=== PATIENT | female | born 1980 | race Caucasian/White ===

== ENCOUNTER → 2019-11-21 08:57 | Outpatient (BNVA) | payer MEDICAID, SELFPAY | PROVIDERS: Family Provider Family Medicine; PCP Family Medicine; Visit Provider Nurse Practitioner | DX: G89.29 Other chronic pain (principal); M51.17 Intervertebral disc disorders with radiculopathy, lumbosacral region; M47.816 Spondylosis without myelopathy or radiculopathy, lumbar region; M43.16 Spondylolisthesis, lumbar region; M51.34 Other intervertebral disc degeneration, thoracic region; M25.561 Pain in right knee; M25.562 Pain in left knee; M25.30 Other instability, unspecified joint; Z79.891 Long term (current) use of opiate analgesic | CPT/HCPCS: 99213 ==

== ENCOUNTER 2019-12-04 08:39 | Outpatient (CLI) | payer MEDICAID, SELFPAY ==
--- NOTE | 2019-12-04 09:10 | FL_ITS ---
WS: [id number] UPPER GI TECHNICAL: Double contrast upper GI FLUOROSCOPY TIME: 2.6 minutes CLINICAL INFORMATION: GERD COMPARISON: None. FINDINGS: Swallowing: Normal. Esophagus: Mild dysmotility Gastroesophageal reflux: Active reflux observed to the upper esophagus Stomach: Moderate esophageal hiatal hernia with partial intrathoracic stomach. Double contrast stomac h is otherwise normal. No obstruction. Duodenum: Normal. Other findings: None. FL/FL upper GI series [id number] IMPRESSION: 1. Mild esophageal dysmotility with delayed emptying and reflux is visualized. 2. Active reflux observed in the upright position to the mid and upper esophag us. 3. Moderate esophageal hiatal hernia with partial intrathoracic stomach. 4. Normal double contrast stomach and duodenum
== END 2019-12-04 08:40 | disposition home or self-care (01) ==
PROVIDERS: Family Provider Family Medicine; PCP Family Medicine; Visit Provider Surgery
DX: K21.9 Gastro-esophageal reflux disease without esophagitis (principal); K44.9 Diaphragmatic hernia without obstruction or gangrene
CPT/HCPCS: 74240

== ENCOUNTER → 2020-01-15 08:45 | Outpatient (BNVA) | payer MEDICAID, SELFPAY | PROVIDERS: Family Provider Family Medicine; PCP Family Medicine; Visit Provider Anesthesiology | DX: G89.29 Other chronic pain (principal); M51.34 Other intervertebral disc degeneration, thoracic region; M43.16 Spondylolisthesis, lumbar region; M47.816 Spondylosis without myelopathy or radiculopathy, lumbar region; M51.17 Intervertebral disc disorders with radiculopathy, lumbosacral region; M79.651 Pain in right thigh; M79.652 Pain in left thigh; M25.561 Pain in right knee; M25.562 Pain in left knee; Z79.891 Long term (current) use of opiate analgesic | CPT/HCPCS: 99214 ==

== ENCOUNTER 2020-04-22 19:14 | Emergency (ER) | payer MEDICAID, SELFPAY ==
[2020-04-22 19:21] VITALS: BP 125/78; RESP 16; TEMP 36.9; O2SAT 97; BMI 41.9
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
[2020-04-22 20:54] VITALS: BP 131/96; PULSE 106; RESP 18; O2SAT 99
[2020-04-22 21:27] VITALS: BP 130/92; PULSE 116; RESP 16; O2SAT 99
[2020-04-22 22:50] VITALS: BP 122/86; PULSE 102; RESP 16; O2SAT 97
== END 2020-04-22 23:02 | disposition home or self-care (01) ==
PROVIDERS: Emergency Provider Emergency Medicine; PCP Family Medicine
DX: S01.01XA Laceration without foreign body of scalp, initial encounter (principal); S00.83XA Contusion of other part of head, initial encounter; K08.89 Other specified disorders of teeth and supporting structures; Y04.8XXA Assault by other bodily force, initial encounter; Z86.19 Personal history of other infectious and parasitic diseases; Z87.891 Personal history of nicotine dependence
CPT/HCPCS: 12002; 12345; 70450; 70486; 72125; 99282; 99283; J2001

== ENCOUNTER → 2020-04-29 14:13 | Outpatient (BNVA) | payer MEDICAID, SELFPAY | PROVIDERS: PCP Family Medicine; Visit Provider Anesthesiology | DX: G89.29 Other chronic pain (principal); M51.34 Other intervertebral disc degeneration, thoracic region; M43.16 Spondylolisthesis, lumbar region; M47.816 Spondylosis without myelopathy or radiculopathy, lumbar region; M51.17 Intervertebral disc disorders with radiculopathy, lumbosacral region; Z79.891 Long term (current) use of opiate analgesic | CPT/HCPCS: 99214 ==

== ENCOUNTER → 2020-07-08 12:39 | Outpatient (BNVA) | payer MEDICAID, SELFPAY | PROVIDERS: PCP Family Medicine; Visit Provider Anesthesiology | DX: G89.29 Other chronic pain (principal); M51.17 Intervertebral disc disorders with radiculopathy, lumbosacral region; M51.34 Other intervertebral disc degeneration, thoracic region; M43.16 Spondylolisthesis, lumbar region; M47.816 Spondylosis without myelopathy or radiculopathy, lumbar region; Z79.891 Long term (current) use of opiate analgesic | CPT/HCPCS: 99214 ==

== ENCOUNTER → 2020-09-04 08:05 | Outpatient (BNVA) | payer MEDICAID, SELFPAY | PROVIDERS: PCP Family Medicine; Visit Provider Counselor Professional | DX: G89.29 Other chronic pain (principal); M51.17 Intervertebral disc disorders with radiculopathy, lumbosacral region; M51.34 Other intervertebral disc degeneration, thoracic region; M43.16 Spondylolisthesis, lumbar region; M47.816 Spondylosis without myelopathy or radiculopathy, lumbar region; Z79.891 Long term (current) use of opiate analgesic | CPT/HCPCS: 99214 ==

== ENCOUNTER 2020-09-04 14:05 | Outpatient (CLI) | payer MEDICAID, SELFPAY ==
[2020-09-04 14:56] LABS: Alanine Aminotransferase 22 U/L (0-33); Albumin Level 4.2 g/dL (3.5-5.2); Alkaline Phosphatase 77 IU/L (35-105); Anion Gap 12.6 (5-19); Aspartate Amino Transferase 21 U/L (0-32); Blood Urea Nitrogen 11 mg/dL (6-20); Calcium 9.4 mg/dL (8.5-10.5); Carbon Dioxide 26 mmol/L (22-29); Chloride 104 mmol/L (98-107); Glomerular Filtration Rate 68.7 mL/min (90-130); Glucose 97 mg/dL (65-115); Osmolality Calculated 285 mOsm/kg (285-295); Potassium 4.6 mmol/L (3.5-5.1); Sodium 138 mmol/L (136-145); Total Bilirubin 0.2 mg/dL (0.15-1.2); Total Protein 7.2 g/dL (6.6-8.7)
== END 2020-09-04 14:06 | disposition home or self-care (01) ==
LOC: LAB 14:08
PROVIDERS: PCP Family Medicine; Visit Provider Anesthesiology
DX: Z51.81 Encounter for therapeutic drug level monitoring (principal); Z79.1 Long term (current) use of non-steroidal anti-inflammatories (NSAID)
CPT/HCPCS: 36415; 80053

== ENCOUNTER → 2020-09-11 07:21 | Outpatient (BNVA) | payer MEDICAID, SELFPAY | PROVIDERS: PCP Family Medicine; Visit Provider Counselor Professional | DX: F32.9 Major depressive disorder, single episode, unspecified (principal) | CPT/HCPCS: 90834 ==

== ENCOUNTER → 2020-09-18 07:58 | Outpatient (BNVA) | payer MEDICAID, SELFPAY | PROVIDERS: PCP Family Medicine; Visit Provider Counselor Professional | DX: F32.9 Major depressive disorder, single episode, unspecified (principal); F43.20 Adjustment disorder, unspecified | CPT/HCPCS: 90834 ==

== ENCOUNTER → 2020-09-23 15:10 | Outpatient (BNVA) | payer OTHER, SELFPAY | PROVIDERS: PCP Family Medicine; Visit Provider Psychiatry & Neurology Psychiatry | DX: F32.9 Major depressive disorder, single episode, unspecified (principal) | CPT/HCPCS: 80061; 83036 ==

== ENCOUNTER → 2020-09-25 07:42 | Outpatient (BNVA) | payer MEDICAID, SELFPAY | PROVIDERS: PCP Family Medicine; Visit Provider Counselor Professional | DX: F32.9 Major depressive disorder, single episode, unspecified (principal) | CPT/HCPCS: 90834 ==

== ENCOUNTER → 2020-10-02 07:52 | Outpatient (BNVA) | payer MEDICAID, SELFPAY ==
[2020-09-25 13:38] VITALS: BP 118/73; BMI 43.7
== END ==
PROVIDERS: PCP Family Medicine; Visit Provider Counselor Professional
DX: F32.9 Major depressive disorder, single episode, unspecified (principal)
CPT/HCPCS: 90832

== ENCOUNTER → 2020-10-16 07:39 | Outpatient (BNVA) | payer MEDICAID, SELFPAY ==
[2020-09-25 13:38] VITALS: BP 118/73; BMI 43.7
== END ==
PROVIDERS: PCP Family Medicine; Visit Provider Counselor Professional
DX: F32.9 Major depressive disorder, single episode, unspecified (principal)
CPT/HCPCS: 90834

== ENCOUNTER → 2020-10-30 08:00 | Outpatient (BNVA) | payer MEDICAID, SELFPAY ==
[2020-09-25 13:38] VITALS: BP 118/73; BMI 43.7
== END ==
PROVIDERS: PCP Family Medicine; Visit Provider Counselor Professional
DX: F32.9 Major depressive disorder, single episode, unspecified (principal)
CPT/HCPCS: 90834

== ENCOUNTER → 2020-11-27 07:58 | Outpatient (BNVA) | payer BC, SELFPAY ==
[2020-09-25 13:38] VITALS: BP 118/73; BMI 43.7
== END ==
PROVIDERS: PCP Family Medicine; Visit Provider Counselor Professional
DX: F32.9 Major depressive disorder, single episode, unspecified (principal); F43.20 Adjustment disorder, unspecified; G89.29 Other chronic pain; M51.17 Intervertebral disc disorders with radiculopathy, lumbosacral region; M47.816 Spondylosis without myelopathy or radiculopathy, lumbar region; M43.16 Spondylolisthesis, lumbar region; G25.81 Restless legs syndrome; Z79.891 Long term (current) use of opiate analgesic
CPT/HCPCS: 90834; 99214

== ENCOUNTER → 2020-12-11 08:02 | Outpatient (BNVA) | payer BC, SELFPAY ==
[2020-09-25 13:38] VITALS: BP 118/73; BMI 43.7
== END ==
PROVIDERS: PCP Family Medicine; Visit Provider Counselor Professional
DX: F32.9 Major depressive disorder, single episode, unspecified (principal); F43.20 Adjustment disorder, unspecified
CPT/HCPCS: 90834

== ENCOUNTER → 2020-12-18 07:44 | Outpatient (BNVA) | payer BC, SELFPAY ==
[2020-09-25 13:38] VITALS: BP 118/73; BMI 43.7
== END ==
PROVIDERS: PCP Family Medicine; Visit Provider Counselor Professional
DX: F32.9 Major depressive disorder, single episode, unspecified (principal); F43.20 Adjustment disorder, unspecified
CPT/HCPCS: 90834

== ENCOUNTER → 2021-01-01 07:40 | Outpatient (BNVA) | payer BC, SELFPAY ==
[2020-09-25 13:38] VITALS: BP 118/73; BMI 43.7
== END ==
PROVIDERS: PCP Family Medicine; Visit Provider Counselor Professional
DX: F32.9 Major depressive disorder, single episode, unspecified (principal); F43.20 Adjustment disorder, unspecified
CPT/HCPCS: 90834

== ENCOUNTER → 2021-01-15 07:43 | Outpatient (BNVA) | payer BC, SELFPAY ==
[2020-09-25 13:38] VITALS: BP 118/73; BMI 43.7
== END ==
PROVIDERS: PCP Family Medicine; Visit Provider Counselor Professional
DX: F32.9 Major depressive disorder, single episode, unspecified (principal); F43.20 Adjustment disorder, unspecified
CPT/HCPCS: 90834

== ENCOUNTER → 2021-01-22 07:36 | Outpatient (BNVA) | payer BC, SELFPAY ==
[2020-09-25 13:38] VITALS: BP 118/73; BMI 43.7
== END ==
PROVIDERS: PCP Family Medicine; Visit Provider Counselor Professional
DX: F32.9 Major depressive disorder, single episode, unspecified (principal); F43.20 Adjustment disorder, unspecified
CPT/HCPCS: 90834

== ENCOUNTER → 2021-02-03 10:05 | Outpatient (BNVA) | payer BC, MEDICAID, SELFPAY ==
[2020-09-25 13:38] VITALS: BP 118/73; BMI 43.7
== END ==
PROVIDERS: PCP Family Medicine; Visit Provider Nurse Practitioner
DX: G89.29 Other chronic pain (principal); M43.16 Spondylolisthesis, lumbar region; M51.17 Intervertebral disc disorders with radiculopathy, lumbosacral region; M51.34 Other intervertebral disc degeneration, thoracic region; M25.561 Pain in right knee; M25.562 Pain in left knee; G25.81 Restless legs syndrome; Z79.891 Long term (current) use of opiate analgesic
CPT/HCPCS: 99213

== ENCOUNTER → 2021-02-05 07:34 | Outpatient (BNVA) | payer BC, SELFPAY ==
[2020-09-25 13:38] VITALS: BP 118/73; BMI 43.7
== END ==
PROVIDERS: PCP Family Medicine; Visit Provider Counselor Professional
DX: F32.9 Major depressive disorder, single episode, unspecified (principal); F43.20 Adjustment disorder, unspecified
CPT/HCPCS: 90834

== ENCOUNTER → 2021-02-12 08:33 | Outpatient (BNVA) | payer BC, SELFPAY ==
[2020-09-25 13:38] VITALS: BP 118/73; BMI 43.7
== END ==
PROVIDERS: PCP Family Medicine; Visit Provider Counselor Professional
DX: F32.9 Major depressive disorder, single episode, unspecified (principal); F43.20 Adjustment disorder, unspecified
CPT/HCPCS: 90832

== ENCOUNTER → 2021-02-26 08:04 | Outpatient (BNVA) | payer BC, SELFPAY ==
[2020-09-25 13:38] VITALS: BP 118/73; BMI 43.7
== END ==
PROVIDERS: PCP Family Medicine; Visit Provider Counselor Professional
DX: F32.9 Major depressive disorder, single episode, unspecified (principal); F43.20 Adjustment disorder, unspecified
CPT/HCPCS: 90834

== ENCOUNTER → 2021-03-12 08:09 | Outpatient (BNVA) | payer OTHER, SELFPAY ==
[2020-09-25 13:38] VITALS: BP 118/73; BMI 43.7
== END ==
PROVIDERS: PCP Family Medicine; Visit Provider Counselor Professional
DX: F32.9 Major depressive disorder, single episode, unspecified (principal); F43.20 Adjustment disorder, unspecified
CPT/HCPCS: 90832; 90834

== ENCOUNTER → 2021-04-02 14:33 | Outpatient (BNVA) | payer BC, MEDICAID, SELFPAY ==
[2020-09-25 13:38] VITALS: BP 118/73; BMI 43.7
== END ==
PROVIDERS: PCP Family Medicine; Visit Provider Nurse Practitioner
DX: G89.29 Other chronic pain (principal); M51.17 Intervertebral disc disorders with radiculopathy, lumbosacral region; M47.816 Spondylosis without myelopathy or radiculopathy, lumbar region; M51.34 Other intervertebral disc degeneration, thoracic region; M43.16 Spondylolisthesis, lumbar region; M25.561 Pain in right knee; M25.562 Pain in left knee; G25.81 Restless legs syndrome; E66.01 Morbid (severe) obesity due to excess calories; Z79.891 Long term (current) use of opiate analgesic
CPT/HCPCS: 99213

== ENCOUNTER → 2021-05-26 11:18 | Outpatient (BNVA) | payer BC, SELFPAY ==
[2021-04-02 15:03] VITALS: BP 118/73; BMI 43.7
== END ==
PROVIDERS: PCP Family Medicine; Visit Provider Anesthesiology
DX: G89.29 Other chronic pain (principal); M51.17 Intervertebral disc disorders with radiculopathy, lumbosacral region; M51.34 Other intervertebral disc degeneration, thoracic region; M43.16 Spondylolisthesis, lumbar region; M47.816 Spondylosis without myelopathy or radiculopathy, lumbar region; M79.606 Pain in leg, unspecified; G25.81 Restless legs syndrome; Z79.891 Long term (current) use of opiate analgesic
CPT/HCPCS: 99213

== ENCOUNTER → 2021-05-27 08:05 | Outpatient (BNVA) | payer BC, SELFPAY ==
[2021-05-26 11:57] VITALS: BP 118/73; BMI 43.7
== END ==
PROVIDERS: PCP Family Medicine; Visit Provider Counselor Professional
DX: F32.9 Major depressive disorder, single episode, unspecified (principal); F43.20 Adjustment disorder, unspecified
CPT/HCPCS: 90834

== ENCOUNTER → 2021-06-11 08:12 | Outpatient (BNVA) | payer BC, SELFPAY ==
[2021-05-26 11:57] VITALS: BP 118/73; BMI 43.7
== END ==
PROVIDERS: PCP Family Medicine; Visit Provider Counselor Professional
DX: F32.9 Major depressive disorder, single episode, unspecified (principal); F43.20 Adjustment disorder, unspecified
CPT/HCPCS: 90832; 90834

== ENCOUNTER → 2021-07-09 11:00 | Outpatient (BNVA) | payer BC, OTHER, SELFPAY ==
[2021-05-26 11:57] VITALS: BP 118/73; BMI 43.7
== END ==
PROVIDERS: PCP Family Medicine; Visit Provider Counselor Professional
DX: F41.9 Anxiety disorder, unspecified (principal); F43.20 Adjustment disorder, unspecified
CPT/HCPCS: 90834

== ENCOUNTER → 2021-08-11 08:40 | Outpatient (BNVA) | payer BC, MEDICAID, SELFPAY ==
[2021-05-26 11:57] VITALS: BP 118/73; BMI 43.7
== END ==
PROVIDERS: PCP Family Medicine; Visit Provider Nurse Practitioner
DX: G89.29 Other chronic pain (principal); M43.16 Spondylolisthesis, lumbar region; M47.816 Spondylosis without myelopathy or radiculopathy, lumbar region; M51.34 Other intervertebral disc degeneration, thoracic region; S30.0XXA Contusion of lower back and pelvis, initial encounter; M51.17 Intervertebral disc disorders with radiculopathy, lumbosacral region; G25.81 Restless legs syndrome; M25.561 Pain in right knee; M25.562 Pain in left knee; E66.01 Morbid (severe) obesity due to excess calories; X58.XXXA Exposure to other specified factors, initial encounter; Z79.891 Long term (current) use of opiate analgesic; Z68.41 Body mass index [BMI] 40.0-44.9, adult
CPT/HCPCS: 99214

== ENCOUNTER 2021-08-11 10:53 | Outpatient (CLI) | payer BC, MEDICAID, SELFPAY ==
[2021-05-26 11:57] VITALS: BP 118/73; BMI 43.7
--- NOTE | 2021-08-11 11:03 | XR_ITS ---
WS: [id number] Exam: XR coccyx 2V [id number] Date/Time of Exam: 08/11/2021 11:05 AM Reason For Exam: M51.17 - Intervertebral disc disorders with radiculopathy... No acute fracture or dislocation. No obvious soft tissue abnormality noted. DJD of the SI joints. XR/XR coccyx 2V [id number] IMPRESSION: 1. No coccygeal fracture or dislocation.
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
[2021-08-11 12:07] LABS: Anion Gap 11.5 (5-19); Blood Urea Nitrogen 9 mg/dL (6-20); Calcium 9.2 mg/dL (8.5-10.5); Carbon Dioxide 26 mmol/L (22-29); Chloride 103 mmol/L (98-107); Glomerular Filtration Rate 109.1 mL/min (90-130); Glucose 84 mg/dL (65-115); Osmolality Calculated 280 mOsm/kg (285-295); Potassium 4.5 mmol/L (3.5-5.1); Sodium 136 mmol/L (136-145)
== END 2021-08-11 10:54 | disposition home or self-care (01) ==
PROVIDERS: PCP Family Medicine; Visit Provider Nurse Practitioner
DX: M51.17 Intervertebral disc disorders with radiculopathy, lumbosacral region (principal); S30.0XXA Contusion of lower back and pelvis, initial encounter; X58.XXXA Exposure to other specified factors, initial encounter; M47.816 Spondylosis without myelopathy or radiculopathy, lumbar region; M47.817 Spondylosis without myelopathy or radiculopathy, lumbosacral region
CPT/HCPCS: 72100; 72220; 80048

== ENCOUNTER → 2021-08-13 14:47 | Outpatient (BNVA) | payer BC, MEDICAID, SELFPAY ==
[2021-05-26 11:57] VITALS: BP 118/73; BMI 43.7
== END ==
PROVIDERS: PCP Family Medicine; Visit Provider Counselor Professional
DX: F41.0 Panic disorder [episodic paroxysmal anxiety] (principal); F43.20 Adjustment disorder, unspecified
CPT/HCPCS: 90834

== ENCOUNTER → 2021-08-19 07:22 | Outpatient (BNVA) | payer BC, SELFPAY ==
[2021-05-26 11:57] VITALS: BP 118/73; BMI 43.7
== END ==
PROVIDERS: PCP Family Medicine; Visit Provider Counselor Professional
DX: F41.9 Anxiety disorder, unspecified (principal); F43.20 Adjustment disorder, unspecified
CPT/HCPCS: 90834

== ENCOUNTER → 2021-10-06 13:10 | Outpatient (BNVA) | payer BC, MEDICAID, SELFPAY ==
[2021-05-26 11:57] VITALS: BP 118/73; BMI 43.7
== END ==
PROVIDERS: PCP Family Medicine; Visit Provider Anesthesiology
DX: G89.29 Other chronic pain (principal); M51.34 Other intervertebral disc degeneration, thoracic region; M43.16 Spondylolisthesis, lumbar region; M47.816 Spondylosis without myelopathy or radiculopathy, lumbar region; M51.17 Intervertebral disc disorders with radiculopathy, lumbosacral region; G25.81 Restless legs syndrome; Z79.899 Other long term (current) drug therapy; Z79.891 Long term (current) use of opiate analgesic
CPT/HCPCS: 99213

== ENCOUNTER → 2021-12-08 12:43 | Outpatient (BNVA) | payer BC, MEDICAID, SELFPAY ==
[2021-05-26 11:57] VITALS: BP 118/73; BMI 43.7
== END ==
PROVIDERS: PCP Family Medicine; Visit Provider Anesthesiology
DX: G89.29 Other chronic pain (principal); M54.41 Lumbago with sciatica, right side; M54.42 Lumbago with sciatica, left side; M43.16 Spondylolisthesis, lumbar region; G25.81 Restless legs syndrome; Z79.891 Long term (current) use of opiate analgesic; Z02.89 Encounter for other administrative examinations
CPT/HCPCS: 99213

== ENCOUNTER → 2021-12-15 10:51 | Outpatient (BNVA) | payer BC, MEDICAID, SELFPAY ==
[2021-05-26 11:57] VITALS: BP 118/73; BMI 43.7
== END ==
PROVIDERS: PCP Family Medicine; Visit Provider Family Medicine
DX: M47.816 Spondylosis without myelopathy or radiculopathy, lumbar region (principal); M43.16 Spondylolisthesis, lumbar region; M51.34 Other intervertebral disc degeneration, thoracic region; F32.9 Major depressive disorder, single episode, unspecified; E66.01 Morbid (severe) obesity due to excess calories; G25.81 Restless legs syndrome; B37.2 Candidiasis of skin and nail; Z79.891 Long term (current) use of opiate analgesic
CPT/HCPCS: 80048; 80061; 84443

== ENCOUNTER → 2021-12-21 11:32 | Outpatient (BNVA) | payer BC, MEDICAID, SELFPAY ==
[2021-05-26 11:57] VITALS: BP 118/73; BMI 43.7
== END ==
PROVIDERS: Visit Provider Obstetrics & Gynecology
DX: Z01.419 Encounter for gynecological examination (general) (routine) without abnormal findings (principal)
CPT/HCPCS: 80053; 82465; 83036; 84443; 85025; 87624

== ENCOUNTER 2023-04-25 07:50 | Emergency (ER) | payer BC, MEDICAID, SELFPAY ==
[2021-05-26 11:57] VITALS: BP 118/73; BMI 43.7
[2023-04-25 07:59] VITALS: BP 142/72; PULSE 99; RESP 18; TEMP 36.7; O2SAT 99
--- NOTE | 2023-04-25 08:07 | USCV_ITS ---
Kaylen Pham Age: 43 Gender: F : 1980 Exam Date: 04/25/2023 08:40 Ordering Phys: Scot Duque Technologist: Israel Lucas Exam [place] [facility] [place] Indication: left calf swelling and pain PROCEDURES: Venous duplex imaging was performed in only the left lower extremity. The following venous structures were evaluated: common femoral vein, profunda vein, proximal portion of the greater saphenous vein, superficial femoral vein, and the popliteal vein. In addition, the posterior tibial and peroneal trunk were evaluated. Serial compression, augmentation maneuvers, and spectral Doppler flow evaluation were performed. FINDINGS: Normal 2-D Doppler and augmentation and compressibility throughout the lower extremity venous structures. Additional imaging through the proximal calf veins also reveals no thrombus. Limited evaluation of the greater saphenous vein is patent with no thrombus. Complex cystic mass with low level echos and no vascularity measuring 6.7 x 3.0 x 1.9 cm in the left popliteal fossa. There is thrombus within a varicosity at the location of the scar site within the high calf. CONCLUSIONS No DVT left lower extremity. Superficial thrombophlebitis left varicosity left lower extremity. Left popliteal fossa Al's cyst. Dr. Kathy Hobbs DO (Electronically Signed) Final Date: 25 April 2023 09:14 S
--- NOTE | 2023-04-25 08:08 | ED_ITS ---
HPI - Extremity Problem General: Chief complaint: Extremity Problem,Nontraumatic Stated complaint: lt leg pain Time Seen by Provider: 04/25/23 07:54 History of Present Illness: Patient is a 43-year-old female who comes to the ED with left leg pain and swelling. Symptoms started approximately 3 days ago. She was having some left calf swelling and increased pain. Yesterday she states that her left calf area was red and warm to the touch as well. Today the redness and warmth has completely resolved. She still having some pain in her left calf along with some swelling. She rates the pain currently a 6 out of 10. 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 Patient says she has a history of having some varicose veins removed on the left leg approximately 5 years ago, but denies any complications or problems since. The doctor who removed her veins told her that she is susceptible to having blood clots. She denies any injury or trauma. Patient is not on any blood thinner. Associated symptoms: Deny chest pain, fever(s) or rash Review of Systems Const: Denies: fever(s), chills or fatigue Eyes: Denies: change in vision or eye discomfort ENMT: Denies: throat pain, odynophagia, nasal discharge or nasal congestion Card: Denies: chest pain, palpitations, edema, swelling of feet/ankles, dyspnea on exertion or orthopnea Resp: Denies: dyspnea, productive cough or non-productive cough GI: Denies: abdominal pain, nausea, vomiting, diarrhea, constipation or hematochezia : Denies: flank pain, dysuria or hematuria Musc: Reports: extremity pain (Left calf) and extremity swelling (Left calf); Denies: neck pain or back pain Skin/Breast: Denies: rash or new lesions Neuro: Denies: headache(s), numbness in extremities or weakness in extremities PFS ED PFSH: Medical History (Updated 04/25/23 @ 09:16 by JOSI Gaspar) Bilateral anterior knee pain Chronic left-sided low back pain with bilateral sciatica Depression Encounter for long-term use of opiate analgesic GERD (gastroesophageal reflux disease) Hepatitis C Intervertebral disc disorders with radiculopathy, lumbosacral region Iron deficiency anemia Joint instability Long-term use of high-risk medication Lumbar spondylosis Major depressive disorder, single episode, moderate Morbid obesity Opioid contract exists Spondylolisthesis of lumbar region Thoracic degenerative disc disease Surgical History Hx of varicose vein ligation and stripping 02/12/19- DR CONTI S/P right breast biopsy 2008 S/P tubal ligation 04/08/06- [facility] [place] Family History Mother Stroke Diabetes Heart disease Breast cancer, Onset Age: 35 Ovarian cancer Father Hypertension Hyperlipidemia Grandmother Heart disease Maternal Family/Other Heart disease Aunt Social History Smoking and tobacco status: never smoked Quit status (tobacco): has quit using tobacco Alcohol intake: current Alcohol intake frequency: holidays/special occasions only Substance/Drug Use: never Do you think of yourself as: Straight/Heterosexual Female Reproductive History: Para: 4 Spontaneous abortions: No Physical Exam Const: COMMON NORMALS: patient oriented x3 HENMT: COMMON NORMALS: normocephalic HEAD & SCALP: normocephalic MOUTH: Normal oral and palatal mucosa present THROAT: posterior oropharynx normal and uvula midline Neck/C-Spine: COMMON NORMALS: supple GENERAL: Yes normal visual inspection Resp: COMMON NORMALS: normal respiratory effort, No retractions, No use of accessory muscles and clear to auscultation bilaterally AUSCULTATION: clear to auscultation bilaterally Cardio: COMMON NORMALS: regular rate, regular rhythm, S1 normal heart sound present, S2 normal heart sound present, No gallops present (Cardio), No clicks present (Cardio), No murmurs present (Cardio) and Peripheral pulses 2+ throughout RATE: regular rate RHYTHM: regular rhythm HEART SOUNDS: S1 normal heart sound present and S2 normal heart sound present PERIPHERAL PULSES: Peripheral pulses 2+ throughout GI: COMMON NORMALS: Normal to inspection, nondistended, normoactive bowel sounds present, Soft to palpation, non-tender and no masses PALPATION: Yes Soft to palpation : COMMON NORMALS: Yes no CVA tenderness BLADDER/KIDNEY EXAM: Yes no CVA tenderness Back/Pelvis: COMMON NORMALS: no CVA tenderness Extremity: NARRATIVE EXTREMITY EXAM: Left calf?visible swelling noted. Tenderness to palpation of calf. No erythema or warmth noted. Patient does have a visible completely healed surgical scar over the calf overlying the swollen and tender area. Pedal pulse 2+. Neuro: COMMON NORMALS: patient oriented x3 GAIT: Yes Normal gait present Skin: GENERAL SKIN EXAM: dry skin Course Vital Signs: Vital signs: Vital Signs Temperature 98.1 F 04/25/23 07:59 Pulse Rate 78 04/25/23 09:24 Respiratory Rate 18 04/25/23 07:59 Blood Pressure 131/68 04/25/23 09:24 Pulse Oximetry 100 04/25/23 09:24 MDM - Extremity (Nontraumatic) Medical Decision Making Patient is a 43-year-old female who comes to the ED with left leg pain and swelling. Symptoms started approximately 3 days ago. She was having some left calf swelling and increased pain. Yesterday she states that her left calf area was red and warm to the touch as well. Today the redness and warmth has completely resolved. She still having some pain in her left calf along with some swelling. She rates the pain currently a 6 out of 10. 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 Patient says she has a history of having some varicose veins removed on the left leg approximately 5 years ago, but denies any complications or problems since. The doctor who removed her veins told her that she is susceptible to having blood clots. She denies any injury or trauma. Patient is not on any blood thinner. Left calf?visible swelling noted. Tenderness to palpation of calf. No erythema or warmth noted. Patient does have a visible completely healed surgical scar over the calf overlying the swollen and tender area. Pedal pulse 2+. Ultrasound of left lower leg venous duplex showed no DVTs. It did note a Al's cyst in the superficial thrombosis of varicose veins. She was stable for discharge home and diagnosed with Al's cyst and superficial vein thrombosis. She was instructed on symptom management. Told to follow-up with her PCP in the next week for reevaluation. Return ED precautions given. Patient understood and agreed with plan. Discharge Plan Discharge Patient Disposition: Home Clinical Impression: Superficial vein thrombosis Al's cyst of knee Qualifiers: Laterality: left Qualified Code(s): M71.22 - Synovial cyst of popliteal space [Al], left knee Condition: Stable Prescriptions: No Action hydrocodone-acetaminophen 5-325 mg tablet 1 tab PO BID PRN (Reason: pain) 30 Days Qty: 60 0RF Rx Instructions: Fill on or after 12/11/21 carbidopa-levodopa 10-100 mg tablet 1 tab PO BID 30 Days Qty: 60 1RF nystatin 100,000 unit/gram cream 1 applic topical DAILY Qty: 30 1RF Discharge Orders: Discharge ED (Routine); Ordered 04/25/23 Ordered By: Scot Duque Discharge Diet: Regular Discharge Activity: Increase activity as tolerated Patient Instructions: Al's Cyst, Superficial Thrombophlebitis (ED) Activity Restrictions/Additional Instructions: Follow-up with medical provider as directed in the next 7 to 10 days for reevaluation. Elevate legs throughout the day and compress leg with Samir wrap to help with symptoms. Take [id number] Tylenol, ibuprofen or naproxen to help with pain. Continue taking all home medications as previously prescribed. Return to the ER or your medical provider if condition worsens. Please read and understand discharge instructions. Thank you for choosing [facility] for your healthcare needs today. Please realize this is an emergency room and that we are providing you with a medical screening exam and this may not be complete and all inclusive of all the testing and or work up that you may need to determine your ailment or severity of your illness. It is very important that you follow up as instructed or that you return to the Emergency Department should you have concerns or if your condition changes or worsens in any way. Coding Level of Care Code ED Marketing Development Manager for Ashley Odom
[2023-04-25 08:32] VITALS: BP 132/79; PULSE 87; O2SAT 98
[2023-04-25 09:24] VITALS: BP 131/68; PULSE 78; O2SAT 100
--- NOTE | 2023-04-29 11:56 | DCPLANNER ---
horticultural farm manager called patient due to no primary care physician - no answer at this time.
== END 2023-04-25 09:24 | disposition home or self-care (01) ==
PROVIDERS: Emergency Provider Physician Assistant
DX: M71.22 Synovial cyst of popliteal space [Baker], left knee (principal); I82.812 Embolism and thrombosis of superficial veins of left lower extremity; Z86.19 Personal history of other infectious and parasitic diseases; Z87.891 Personal history of nicotine dependence
CPT/HCPCS: 93971; 99284

== ENCOUNTER → 2023-07-20 16:23 | Outpatient (BNVA) | payer BC, MEDICAID, SELFPAY ==
[2021-05-26 11:57] VITALS: BP 118/73; BMI 43.7
== END ==
PROVIDERS: Visit Provider Emergency Medicine
DX: R05.9 Cough, unspecified (principal); Z20.822 Contact with and (suspected) exposure to COVID-19
CPT/HCPCS: 87426

== ENCOUNTER 2023-10-10 16:25 | Emergency (ER) | payer BC, MEDICAID, SELFPAY ==
[2021-05-26 11:57] VITALS: BP 118/73; BMI 43.7
[2023-10-10 16:40] VITALS: BP 113/74; PULSE 114; RESP 17; TEMP 36.9; O2SAT 97; BMI 41.9
--- NOTE | 2023-10-10 17:01 | ECG_ITS ---
[facility] Test Date: 2023-10-10 Pat Name: Kaylen Pham Department: Room: Gender: Female Hydro Operator: : 1980 Requested By: Ga Stroud Order Number: [id number] Elva MD: Don Tan M.D. Measurements Intervals [place] Rate: 98 P: 33 MD: 163 QRS: 15 QRSD: 87 T: 30 QT: 329 QTc: 422 Interpretive Statements SINUS RHYTHM Normal EKG Compared to ECG 08/01/2019 16:35:51 No significant change Electronically Signed On 10-11-2023 16:59:50 STEAM FITTER SUPERVISOR MAINTENANCE by Don Tan M.D. [id number]
--- NOTE | 2023-10-10 17:01 | XRR_ITS ---
PROCEDURE INFORMATION: Exam: XR Chest Exam date and time: 10/10/2023 5:08 PM Age: 43 years old Clinical indication: Shortness of breath; Additional info: Dyspnea/cough TECHNIQUE: Imaging protocol: Radiologic exam of the chest. Views: 1 view. COMPARISON: CR XR chest 1V [id number] 08/01/2019 5:01 PM FINDINGS: Lungs: Mild infiltrate/atelectasis is seen adjacent to the inferior right hilum in the lower right lung, appearing new from previous exam of 2019. Pleural spaces: Unremarkable. No pleural effusion. No pneumothorax. Heart/Mediastinum: Unremarkable. No cardiomegaly. Hiatal hernia suggested. Bones/joints: Unremarkable. XR/XR chest 1V portable [id number] IMPRESSION: Mild infiltrate/atelectasis adjacent to the inferior right hilum in the lower right lung likely mild pneumonia with atelectasis, for follow-up.
--- NOTE | 2023-10-10 17:03 | ED_ITS ---
HPI - SOB/Dyspnea General: Chief Complaint: Shortness of Breath/Dyspnea Stated Complaint: SOB Time Seen by Provider: 10/10/23 17:01 Source: patient Mode of arrival: ambulatory History of Present Illness: HPI Narrative: 43-year-old female presents emergency room planing of increasing shortness of breath Productive cough the last couple weeks she is states she feels gurgly she said green mucus productive cough. Low-grade fever. Denies chest pain or abdominal pain. No vomiting or diarrhea. 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 Depression Encounter for long-term use of opiate analgesic GERD (gastroesophageal reflux disease) Hepatitis C Intervertebral disc disorders with radiculopathy, lumbosacral region Iron deficiency anemia Joint instability Long-term use of high-risk medication Lumbar spondylosis Major depressive disorder, single episode, moderate Morbid obesity Opioid contract exists Spondylolisthesis of lumbar region Thoracic degenerative disc disease Surgical History Hx of varicose vein ligation and stripping 02/12/19- DR CONTI S/P right breast biopsy 2008 S/P tubal ligation 04/08/06- DR [facility] [place] Family History Mother Stroke Diabetes Heart disease Breast cancer, Onset Age: 35 Ovarian cancer Father Hypertension Hyperlipidemia Grandmother Heart disease Maternal Family/Other Heart disease Aunt Social History Smoking and tobacco/nicotine status: never used tobacco/nicotine Quit status (tobacco/nicotine): has quit using Alcohol intake: current Alcohol intake frequency: holidays/special occasions only Substance/Drug Use: never Do you think of yourself as: Straight/Heterosexual Female Reproductive History: Para: 4 Spontaneous abortions: No Physical Exam Const: COMMON NORMALS: no acute distress GENERAL APPEARANCE: cooperative and comfortable ORIENTATION/CONSCIOUSNESS: Yes awake, Yes oriented to person, Yes oriented to place and Yes oriented to time HENMT: COMMON NORMALS: normocephalic, atraumatic and hearing grossly normal bilaterally HEAD & SCALP: normocephalic and atraumatic Resp: COMMON NORMALS: normal respiratory effort, No retractions, No use of accessory muscles and clear to auscultation bilaterally AUSCULTATION: clear to auscultation bilaterally Cardio: COMMON NORMALS: regular rate, regular rhythm and No murmurs present (Cardio) RATE: regular rate RHYTHM: regular rhythm GI: COMMON NORMALS: Soft to palpation and No hepatosplenomegaly present AUSCULTATION: Yes normoactive bowel sounds PALPATION: Yes Soft to palpation, No Tenderness to palpation present (GI), No Guarding due to palpation present (GI) and Yes No hepatosplenomegaly present Extremity: COMMON NORMALS: normal to inspection, capillary refill normal, no clubbing, cyanosis or edema, no calf tenderness and no pedal edema Neuro: SENSORIUM/ORIENTATION: Yes oriented to person, Yes oriented to place and Yes oriented to time Skin: COMMON NORMALS: no rashes or lesions noted GENERAL SKIN EXAM: no rashes or lesions noted Course Vital Signs: Vital signs: Vital Signs Temperature 98.4 F 10/10/23 16:40 Pulse Rate 114 H 10/10/23 16:40 Respiratory Rate 17 10/10/23 16:40 Blood Pressure 113/74 10/10/23 16:40 Pulse Oximetry 97 10/10/23 16:40 Oxygen Delivery Me thod Room Air 10/10/23 16:40 MDM - SOB/Dyspnea Medical Decision Making Chest x-ray shows pneumonia no leukocytosis but patient does have significant anemia with severe microcytosis. We will get serial labs this has been chronic for last couple of years and she reports states that she has been told several times recently she is anemic she has no acute blood loss she has not had excessively heavy periods no hematemesis coffee-ground emesis. We will get anemia labs and have her return to outpatients for unit of blood tomorrow. We will have case management set her up for a primary care physician as soon as possible for further evaluation of her anemia. Medical Records I reviewed the patient's medical records. Lab Data I reviewed the patient's lab results. 10/10/23 17:18 10/10/23 17:18 Labs/Radiology: Radiology Impressions Chest X-Ray 10/10/23 17:01 IMPRESSION: Mild infiltrate/atelectasis adjacent to the inferior right hilum in the lower right lung likely mild pneumonia with atelectasis, for follow-up. Laboratory Results WBC 8.25 10^3/uL (3.29-11.43) 10/10/23 17:18 RBC 4.38 10^6/uL (3.85-5.65) 10/10/23 17:18 Hgb 7.30 g/dL (11.27-16.99) L 10/10/23 17:18 Hct 28.7 % (36-47) L 10/10/23 17:18 MCV 65.5 fl (85-98) L 10/10/23 17:18 MCH 16.7 pg (27-33) L 10/10/23 17:18 MCHC 25.4 g/dL (30-55) L 10/10/23 17:18 RDW 20.5 % (12.1-15.1) H 10/10/23 17:18 Plt Count 390 10^3/cmm (157-399) 10/10/23 17:18 MPV 8.4 fL (7.4-10.4) 10/10/23 17:18 Neut % (Auto) 60.0 % 10/10/23 17:18 Lymph % (Auto) 28.6 % 10/10/23 17:18 Crane % (Auto) 6.4 % 10/10/23 17:18 Eos % (Auto) 4.2 % 10/10/23 17:18 Baso % (Auto) 0.6 % 10/10/23 17:18 Neut # (Auto) 4.94 10^3/uL (1.8-7.7) 10/10/23 17:18 Lymph # (Auto) 2.4 10^3/uL (0.8-4.8) 10/10/23 17:18 Crane # (Auto) 0.5 10^3/uL (0.2-0.9) 10/10/23 17:18 Eos # (Auto) 0.4 10^3/uL (0.0-0.8) 10/10/23 17:18 Baso # (Auto) 0.1 10^3/uL (0.0-0.1) 10/10/23 17:18 Nucleated RBC % (auto) 0 % 10/10/23 17:18 Nucleated RBCs # 0.0 /100WBC 10/10/23 17:18 Sodium 137 mmol/L (136-145) 10/10/23 17:18 Potassium 4.2 mmol/L (3.5-5.1) 10/10/23 17:18 Chloride 101 mmol/L (98-107) 10/10/23 17:18 Carbon Dioxide 24 mmol/L (22-29) 10/10/23 17:18 Anion Gap 16.2 (5-19) 10/10/23 17:18 BUN 10 mg/dL (6-20) 10/10/23 17:18 Creatinine 1.1 mg/dL (0.5-0.9) H 10/10/23 17:18 GFR Calculation 53.7 mL/min (90-130) L 10/10/23 17:18 Glucose 79 mg/dL (65-115) 10/10/23 17:18 Calculated Osmolality 282 mOsm/kg (285-295) L 10/10/23 17:18 Calcium 9.6 mg/dL (8.5-10.5) 10/10/23 17:18 Total Bilirubin 0.3 mg/dL (0.15-1.2) 10/10/23 17:18 AST 15 U/L (0-32) 10/10/23 17:18 ALT 14 U/L (0-33) 10/10/23 17:18 Alkaline Phosphatase 82 U/L (35-105) 10/10/23 17:18 Total Protein 7.6 g/dL (6.6-8.7) 10/10/23 17:18 Albumin 4.1 g/dL (3.5-5.2) 10/10/23 17:18 Globulin 3.5 g/dL (1.3-4.6) 10/10/23 17:18 All radiology interpretation(s) finalized by discharge Discharge Plan Discharge Patient Disposition: Home Clinical Impression: Community acquired pneumonia, Anemia Condition: Stable Prescriptions: New albuterol sulfate 90 mcg/actuation HFA aerosol inhaler 2 inh INHALATION Q4H PRN (Reason: shortness of breath or wheezing) Qty: 18 0RF levofloxacin 750 mg tablet 750 mg PO DAILY 7 Days Qty: 7 0RF No Action fluticasone propionate [Flonase Allergy Relief] 50 mcg/actuation spray,suspension 2 spray intranasal DAILY Qty: 16 0RF Rx Instructions: administer into each nostril cetirizine [Zyrtec] 10 mg tablet 10 mg PO DAILY Qty: 30 0RF Discharge Orders: Discharge ED (Routine); Ordered 10/10/23 Ordered By: Ga Zamarripa Discharge Diet: Usual diet Discharge Activity: Increase activity as tolerated Patient Instructions: Pneumonia (ED), Opioid Safety, Pain Management Activity Restrictions/Additional Instructions: Thank you for choosing [facility] for your healthcare needs today. Please realize this is an emergency room and that we are providing you with a medical screening exam and this may not be complete and all inclusive of all the testing and or work up that you may need to determine your ailment or severity of your illness. It is very important that you follow up as instructed or that you return to the Emergency Department should you have concerns or if your condition changes or worsens in any way. You are seen today in the emergency room for persistent cough. Chest x-ray showed pneumonia. Recommend starting oral antibiotics once daily for 7 days. You can use the albuterol inhaler as needed. Follow-up with your primary care doctor in the next 10 to 14 days to reevaluate sooner if your symptoms are not beginning to improve. You are also noted to have a microcytic anemia in the emergency room. From the looks of your indices on your CBC this is chronic. There was scheduled to transfuse 1 unit of blood tomorrow and outpatients. We did get anemia work-up here in the emergency room today, case management make arrangements for you to follow-up with a primary care provider to further evaluate your anemia. Coding Level of Care Code ED [employer] Att[employer] for Ashley Odom
[2023-10-10 17:29] LABS: Basophils # 0.1 10^3/uL (0.0-0.1); Basophils % 0.6 %; Eosinophils # 0.4 10^3/uL (0.0-0.8); Eosinophils % 4.2 %; Hematocrit 28.7 % (36-47); Lymphocytes # 2.4 10^3/uL (0.8-4.8); Lymphocytes % 28.6 %; Mean Corpuscular HGB Conc 25.4 g/dL (30-55); Mean Corpuscular Hemoglobin 16.7 pg (27-33); Mean Corpuscular Volume 65.5 fl (85-98); Mean Platelet Volume 8.4 fL (7.4-10.4); Monocytes # 0.5 10^3/uL (0.2-0.9); Monocytes % 6.4 %; Neutrophils # 4.94 10^3/uL (1.8-7.7); Nucleated Red Blood Cells % 0 %; Platelet Count 390 10^3/cmm (157-399); Red Blood Count 4.38 10^6/uL (3.85-5.65); Red Cell Distribution Width 20.5 % (12.1-15.1); White Blood Count 8.25 10^3/uL (3.29-11.43)
[2023-10-10 17:43] LABS: Alanine Aminotransferase 14 U/L (0-33); Albumin Level 4.1 g/dL (3.5-5.2); Alkaline Phosphatase 82 U/L (35-105); Anion Gap 16.2 (5-19); Aspartate Amino Transferase 15 U/L (0-32); Blood Urea Nitrogen 10 mg/dL (6-20); Calcium 9.6 mg/dL (8.5-10.5); Carbon Dioxide 24 mmol/L (22-29); Chloride 101 mmol/L (98-107); Globulin 3.5 g/dL (1.3-4.6); Glomerular Filtration Rate 53.7 mL/min (90-130); Glucose 79 mg/dL (65-115); Osmolality Calculated 282 mOsm/kg (285-295); Potassium 4.2 mmol/L (3.5-5.1); Sodium 137 mmol/L (136-145); Total Bilirubin 0.3 mg/dL (0.15-1.2); Total Protein 7.6 g/dL (6.6-8.7)
--- NOTE | 2023-10-10 17:51 | DCPLANNER ---
Referral was sent to [facility] for patient to get established for a pcp. Clinic to contact patient.
[2023-10-10 19:11] LABS: Ferritin 8 ng/mL (15-150); Iron 17 ug/dL (37-145); Percent Saturation 4.4 % (20-50); Total Iron Binding Capacity 380 mcg/dl; Unsaturated Iron Binding 363 ug/dL (112-347)
[2023-10-10 19:25] LABS: Folate Level 13.1 ng/mL (4.8-37.3)
[2023-10-10 19:26] LABS: Vitamin B12 763 pg/mL (232-1245)
[2023-10-14 12:04] LABS: Erythropoietin 325.4 mIU/mL (2.6-18.5)
== END 2023-10-10 18:31 | disposition home or self-care (01) ==
PROVIDERS: Emergency Provider Family Medicine
DX: J18.9 Pneumonia, unspecified organism (principal); D64.9 Anemia, unspecified; Z86.19 Personal history of other infectious and parasitic diseases
CPT/HCPCS: 36415; 71045; 80053; 82607; 82668; 82728; 82746; 83010; 83540; 83550; 85025; 85045; 93005; 99285

== ENCOUNTER 2023-10-11 09:10 | Oncology outpatient (recurring) (ONCR) | payer BC, MEDICAID, SELFPAY ==
[2021-05-26 11:57] VITALS: BP 118/73; BMI 43.7
[2023-10-11] VITALS (7 sets, daily range): BP systolic 115–125; BP diastolic 80–86; PULSE 89–98; RESP 17; TEMP 36.4–36.8; O2SAT 96–99
[2023-10-11] MEDS: diphenhydrAMINE 25 mg Capsule PO (11:49)
[2023-10-11] MEDS: acetaminophen 325 mg Tablet 650 MG PO (11:49)
[2023-10-11] MEDS: sodium chloride 0.9% 250 ML 75 ML IV (11:50)
== END 2023-10-13 23:59 | disposition home or self-care (01) ==
LOC: ONCMED 09:11
PROVIDERS: Referring Provider Family Medicine; Visit Provider Family Medicine
DX: D50.9 Iron deficiency anemia, unspecified (principal)
CPT/HCPCS: 36430; 86850; 86900; 86920; J7050; P9016

== ENCOUNTER → 2023-10-27 11:50 | Outpatient (BNVA) | payer BC, MEDICAID, SELFPAY ==
[2021-05-26 11:57] VITALS: BP 118/73; BMI 43.7
== END ==
PROVIDERS: Visit Provider Family Medicine Adult Medicine
DX: D50.9 Iron deficiency anemia, unspecified (principal)
CPT/HCPCS: 85025

== ENCOUNTER 2023-11-08 10:26 | Outpatient (CLI) | payer BC, MEDICAID, SELFPAY ==
[2021-05-26 11:57] VITALS: BP 118/73; BMI 43.7
--- NOTE | 2023-11-08 10:31 | MM_ITS ---
WS: [id number] BILATERAL 3D TOMOSYNTHESIS DIGITAL SCREENING MAMMOGRAPHY WITH CAD CLINICAL INFORMATION: SCREENING HISTORY: Screening mammogram. No current complaints. COMPARISON: 2017 TECHNIQUE: Bilateral CC and MLO views. FINDINGS: Scattered fibroglandular densities bilaterally. No suspicious focal mass, asymmetry, calcifications, or architectural distortion. No evidence of malignancy. Incidental punctate and lucent centered calci fications. Coarse clustered calcifications RIGHT breast. IMPRESSION: MM/[place] [id number] BI-RADS: 2-Benign FOLLOW UP: 1 Year Follow-up Recommend return to annual screening mammography.
== END 2023-11-08 10:27 | disposition home or self-care (01) ==
LOC: RAD 10:27
PROVIDERS: Visit Provider Family Medicine Adult Medicine
DX: Z12.31 Encounter for screening mammogram for malignant neoplasm of breast (principal)
CPT/HCPCS: 77063; 77067

== ENCOUNTER 2023-12-29 20:00 | Outpatient (CLI) | payer BC, MEDICAID, SELFPAY ==
[2021-05-26 11:57] VITALS: BP 118/73; BMI 43.7
== END 2023-12-29 20:01 | disposition home or self-care (01) ==
LOC: SLEEP 12-30 05:43
PROVIDERS: Visit Provider Family Medicine Adult Medicine
DX: R06.02 Shortness of breath (principal); G47.61 Periodic limb movement disorder; R06.83 Snoring
CPT/HCPCS: 95810

== ENCOUNTER → 2024-01-26 08:40 | Outpatient (BNVA) | payer BC, MEDICAID, SELFPAY ==
[2021-05-26 11:57] VITALS: BP 118/73; BMI 43.7
== END ==
PROVIDERS: Visit Provider Family Medicine Adult Medicine
DX: D50.8 Other iron deficiency anemias (principal); R79.89 Other specified abnormal findings of blood chemistry; N18.2 Chronic kidney disease, stage 2 (mild)
CPT/HCPCS: 80053; 84443; 85025

== ENCOUNTER 2024-07-09 15:56 | Emergency (ER) | payer BC, MEDICAID, SELFPAY ==
[2021-05-26 11:57] VITALS: BP 118/73; BMI 43.7
--- NOTE | 2024-07-09 16:01 | ECG_ITS ---
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 Measurements Intervals Sylva Rate: 95 P: 27 CA: 156 QRS: 17 QRSD: 85 T: 19 QT: 325 QTc: 409 Interpretive Statements SINUS RHYTHM Compared to ECG 10/10/2023 17:12:49 No significant changes Electronically Signed On 07-09-2024 22:49:38 CDT by Ethan Grace M.D. [id number]
[2024-07-09 16:09] VITALS: BP 117/84; PULSE 93; RESP 18; TEMP 36.7; O2SAT 97
--- NOTE | 2024-07-09 16:55 | XRR_ITS ---
PROCEDURE INFORMATION: Exam: XR Chest Exam date and time: 07/09/2024 5:05 PM Age: 44 years old Clinical indication: Pain; Chest pressure; Additional info: Chest pain TECHNIQUE: Imaging protocol: Radiologic exam of the chest. Views: 1 view. COMPARISON: CR XR chest 1V portable [id number] 10/10/2023 5:08 PM FINDINGS: Lungs: Unremarkable. No consolidation. Pleural spaces: Unremarkable. No pleural effusion. No pneumothorax. Heart/Mediastinum: Unremarkable. No cardiomegaly. Bones/joints: Unremarkable. XR/XR chest 1V portable [id number] IMPRESSION: No acute findings.
[2024-07-09 17:13] VITALS: BP 139/88; PULSE 88; RESP 18; O2SAT 99
[2024-07-09 17:20] LABS: Basophils % 0.4 %; Eosinophils # 0.1 10^3/uL (0.0-0.8); Eosinophils % 1.7 %; Hematocrit 41.3 % (36-47); Lymphocytes # 2.4 10^3/uL (0.8-4.8); Lymphocytes % 34.4 %; Mean Corpuscular HGB Conc 33.4 g/dL (30-55); Mean Corpuscular Hemoglobin 29.7 pg (27-33); Mean Corpuscular Volume 88.8 fl (85-98); Mean Platelet Volume 8.8 fL (7.4-10.4); Monocytes # 0.4 10^3/uL (0.2-0.9); Monocytes % 5.8 %; Neutrophils # 4.07 10^3/uL (1.8-7.7); Neutrophils % 57.4 %; Nucleated Red Blood Cells % 0 %; Platelet Count 304 10^3/cmm (157-399); Red Blood Count 4.65 10^6/uL (3.85-5.65); Red Cell Distribution Width 13.2 % (12.1-15.1); White Blood Count 7.09 10^3/uL (3.29-11.43)
--- NOTE | 2024-07-09 17:32 | W.ED.SOB ---
Documented by User: JOSI Nagel 07/09/24 19:21 HPI - SOB/Dyspnea General: Chief Complaint: Shortness of Breath/Dyspnea Stated Complaint: dizzy/chest burning/SOB Time Seen by Provider: 07/09/24 17:01 Source: patient Mode of arrival: ambulatory Limitations: no limitations History of Present Illness: HPI Narrative: Patient is a 44-year-old female presenting to the emergency department planing of shortness of breath onset past 3 days. She states she was here in September of last year for the same symptoms, was found to be anemic at that time with a right lobe pneumonia. She required blood transfusion at that time and was started on antibiotics upon review of her chart. She states that she has not been around anyone sick, is adamant that this is a pneumonia again. She is reporting a cough, congestion, and tingling to her lips and fingers. She denies any cardiac history. Denies any respiratory history such as asthma or COPD. Currently at this time she is breathing 99% on room air, no significant respiratory distress. Does not use oxygen at home. She does not report to me any pertinent past medical history other than anemia and recurrent pneumonia. Her cough is reported to be nonproductive. Does not report history of heart failure and is not reporting any orthopnea at this time. No other symptoms or concerning historical factors reported. MD elicited complaint: shortness of breath Pertinent past history: pneumonia Onset (ago): day(s) (3) Timing: constant and progressively worsening Severity: moderate Exacerbating factors: nothing Relieving factors: nothing Known history of: recurrent pneumonia (Reported subjectively) Associated symptoms: Deny abdominal pain, chest pain, fever(s), lightheadedness, nausea, palpitations or vomiting Treatment prior to arrival: none Related Data Previous Rx's Medication Instructions Recorded ferrous sulfate 325 mg (65 mg 325 mg PO BID iron anemia #60 tabs 10/27/23 iron) tablet amoxicillin 875 mg-potassium 1 tab PO BID 10 days #20 tabs 07/09/24 clavulanate 125 mg tablet prednisone 20 mg tablet 60 mg (3 x 20 mg) PO ONCE 5 days 07/09/24 #15 tabs Allergies Allergy/AdvReac Type Severity Reaction Status Date / Time shiitake mushroom AdvReac Unknown FACIAL Verified 07/09/24 16:12 NUMBNESS Review of Systems General: Reports: 10 or more systems reviewed and unremarkable except in HPI and below Const: Denies: fever(s), chills or fatigue Eyes: Denies: change in vision ENMT: Reports: nasal congestion and other (Tingling of lips); Denies: throat pain, ear or mastoid pain or nasal discharge Card: Denies: chest pain, palpitations, swelling of feet/ankles or lightheadedness Resp: Reports: dyspnea and non-productive cough; Denies: wheezing GI: Denies: abdominal pain, nausea, vomiting, diarrhea or constipation : Denies: flank pain, difficulty voiding, dysuria or urinary frequency Musc: Denies: neck pain, back pain or joint pain Skin/Breast: Denies: rash Neuro: Reports: sensory changes (Tingling in fingers); Denies: headache(s) or weakness in extremities PFSH ED PFSH: Medical History (Updated 07/09/24 @ 19:04 by JOSI Nagel) Anxiety and depression Primary snoring Sleep study 01/09/2024 normal sleep study, no apnea or hypoxemia Iron deficiency anemia Intermittent palpitations Hepatitis C Major depressive disorder, single episode, moderate Bilateral anterior knee pain Intervertebral disc disorders with radiculopathy, lumbosacral region Thoracic degenerative disc disease Morbid obesity GERD (gastroesophageal reflux disease) Surgical History S/[place] tubal [place] 04/08/06- [place] [facility] [place] varicose vein ligation and stripping 02/12/19- DR CONTI S/P right breast biopsy 2008 Family History Mother Stroke Diabetes Heart disease Breast cancer, Onset Age: 35 Ovarian cancer Father Hypertension Hyperlipidemia Grandmother Heart disease Maternal Family/Other Heart disease Aunt Social History Smoking and tobacco/nicotine status: former use of tobacco/nicotine Female Reproductive History: Para: 4 Spontaneous abortions: No Physical Exam Const: COMMON NORMALS: no acute distress and no limitations GENERAL APPEARANCE: cooperative, comfortable and well developed NUTRITIONAL APPEARANCE: obese morbidly obese ORIENTATION/CONSCIOUSNESS: Yes awake HENMT: COMMON NORMALS: normocephalic, atraumatic, hearing grossly normal bilaterally and moist oral mucous membranes HEAD & SCALP: normocephalic and atraumatic THROAT: posterior oropharynx normal Eye: COMMON NORMALS: Equal, round and reactive pupils present, EOMs intact bilaterally and conjunctivae normal CONJUNCTIVA: Yes conjunctivae normal PUPIL: Yes Equal, round and reactive pupils present Neck/C-Spine: COMMON NORMALS: full ROM, supple and no JVD Resp: COMMON NORMALS: normal respiratory effort, No retractions, No use of accessory muscles and clear to auscultation bilaterally EFFORT & INSPECTION: Yes able to speak in complete sentences AUSCULTATION: clear to auscultation bilaterally Cardio: COMMON NORMALS: no JVD, regular rate, regular rhythm, No clicks present (Cardio), No murmurs present (Cardio) and No rub (Cardio) RATE: regular rate RHYTHM: regular rhythm GI: COMMON NORMALS: Normal to inspection, nondistended, normoactive bowel sounds present, Soft to palpation and non-tender AUSCULTATION: Yes normoactive bowel sounds PALPATION: Yes Soft to palpation RECTAL EXAM: deferred Back/Pelvis: COMMON NORMALS: thoracic and lumbar spine normal to inspection, no thoracic nor lumbar tenderness and thoraco-lumbar ROM normal Extremity: COMMON NORMALS: normal to inspection, full ROM and capillary refill normal NARRATIVE EXTREMITY EXAM: No peripheral edema Psych: COMMON NORMALS: mental status grossly normal and Normal thought process present THOUGHT PROCESS: Normal thought process present Skin: COMMON NORMALS: no rashes or lesions noted GENERAL SKIN EXAM: no rashes or lesions noted Course Vital Signs: Vital signs: Vital Signs Temperature 98.1 F 07/09/24 16:09 Pulse Rate 89 07/09/24 19:20 Respiratory Rate 18 07/09/24 17:13 Blood Pressure 115/87 07/09/24 19:20 Pulse Oximetry 99 07/09/24 19:20 Oxygen Delivery Me thod Room Air 07/09/24 18:30 MDM - SOB/Dyspnea Medical Decision Making Patient presented for evaluation of 3 days of shortness of breath accompanying with other upper respiratory symptoms, was adamant that she is having a pneumonia as she had similar symptoms in September and was diagnosed with pneumonia. On arrival her vitals were normal, noted to be afebrile and breathing comfortably on room air. Her lungs were normal to auscultation, no wheezing or focal findings. Her lab work was normal. Currently at this time there is a COVID PCR pending, however patient is again adamant that she does not have COVID and has pneumonia. Vitals have remained stable. X-ray did not demonstrate any findings of pneumonia. At the urging of patient, we will start her on antibiotics and steroids to treat an upper respiratory infection and reactive airway disease, and she is instructed to follow-up with primary care provider later this week. Return precautions were given. COVID pending at this time she will be notified with any abnormal results. Lab Data 07/09/24 17:03 07/09/24 17:03 Labs/Radiology: Radiology Impressions Chest X-Ray 07/09/24 16:55 IMPRESSION: No acute findings. Laboratory Results WBC 7.09 10^3/uL (3.29-11.43) 07/09/24 17:03 RBC 4.65 10^6/uL (3.85-5.65) 07/09/24 17:03 Hgb 13.80 g/dL (11.27-16.99) 07/09/24 17:03 Hct 41.3 % (36-47) 07/09/24 17:03 MCV 88.8 fl (85-98) 07/09/24 17:03 MCH 29.7 pg (27-33) 07/09/24 17:03 MCHC 33.4 g/dL (30-55) 07/09/24 17:03 RDW 13.2 % (12.1-15.1) 07/09/24 17:03 Plt Count 304 10^3/cmm (157-399) 07/09/24 17:03 MPV 8.8 fL (7.4-10.4) 07/09/24 17:03 Neut % (Auto) 57.4 % 07/09/24 17:03 Lymph % (Auto) 34.4 % 07/09/24 17:03 [place] % (Auto) 5.8 % 07/09/24 17:03 Eos % (Auto) 1.7 % 07/09/24 17:03 Baso % (Auto) 0.4 % 07/09/24 17:03 Neut # (Auto) 4.07 10^3/uL (1.8-7.7) 07/09/24 17:03 Lymph # (Auto) 2.4 10^3/uL (0.8-4.8) 07/09/24 17:03 [place] # (Auto) 0.4 10^3/uL (0.2-0.9) 07/09/24 17:03 Eos # (Auto) 0.1 10^3/uL (0.0-0.8) 07/09/24 17:03 Baso # (Auto) 0.0 10^3/uL (0.0-0.1) 07/09/24 17:03 Nucleated RBC % (auto) 0 % 07/09/24 17:03 Nucleated RBCs # 0.0 /100WBC 07/09/24 17:03 Sodium 141 mmol/L (136-145) 07/09/24 17:03 Potassium 4.2 mmol/L (3.5-5.1) 07/09/24 17:03 Chloride 102 mmol/L (98-107) 07/09/24 17:03 Carbon Dioxide 28 mmol/L (22-29) 07/09/24 17:03 Anion Gap 15.2 (5-19) 07/09/24 17:03 BUN 8 mg/dL (6-20) 07/09/24 17:03 Creatinine 0.8 mg/dL (0.5-0.9) 07/09/24 17:03 GFR Calculation 77.2 mL/min (90-130) L 07/09/24 17:03 Glucose 97 mg/dL (65-115) 07/09/24 17:03 Calculated Osmolality 290 mOsm/kg (285-295) 07/09/24 17:03 Calcium 9.2 mg/dL (8.5-10.5) 07/09/24 17:03 Total Bilirubin 0.3 mg/dL (0.15-1.2) 07/09/24 17:03 AST 15 U/L (0-32) 07/09/24 17:03 ALT 18 U/L (0-33) 07/09/24 17:03 Alkaline Phosphatase 83 U/L (35-105) 07/09/24 17:03 Total Protein 7.4 g/dL (6.6-8.7) 07/09/24 17:03 Albumin 4.1 g/dL (3.5-5.2) 07/09/24 17:03 Globulin 3.3 g/dL (1.3-4.6) 07/09/24 17:03 Coronavirus 229E (PCR) Not detected (NOT DETECT) 07/09/24 17:17 Human Metapneumovir PCR Not detected (NOT DETECT) 07/09/24 20:06 Entero/Rhino (PCR) Detected (NOT DETECT) A 07/09/24 20:06 SARS-CoV-2 (PCR) Not detected (NOT DETECT) 07/09/24 17:17 All radiology interpretation(s) finalized by discharge Discharge Plan Discharge Patient Disposition: Home Clinical Impression: Mild intermittent reactive airway disease Upper respiratory infection Qualifiers: URI type: unspecified URI Qualified Code(s): J06.9 - Acute upper respiratory infection, unspecified Condition: Stable Prescriptions: New prednisone 20 mg tablet 60 mg PO ONCE 5 Days Qty: 15 0RF amoxicillin-pot clavulanate 875-125 mg tablet 1 tab PO BID 10 Days Qty: 20 0RF No Action ferrous sulfate 325 mg (65 mg iron) tablet 325 mg PO BID Qty: 60 11RF Discharge Orders: Discharge ED (Routine); Ordered 07/09/24 Ordered By: Benjamin Jaramillo Referrals: Johnny Hedrick MD [Primary Care Provider] - Discharge Diet: Usual diet Discharge Activity: Increase activity as tolerated Patient Instructions: Upper Respiratory Infection (ED) Activity Restrictions/Additional Instructions: Augmentin and steroids. Plenty of fluids. Follow-up with your primary care provider later this week for reevaluation. Return with any new or worsening. Coding Level of Care Code ED [employer] for [employer] Documented by User: Ga Zamarripa DO 07/12/24 00:26 HPI - SOB/Dyspnea General: Chief Complaint: Shortness of Breath/Dyspnea Stated Complaint: dizzy/chest burning/SOB Time Seen by Provider: 07/09/24 17:01 Related Data Previous Rx's Medication Instructions Recorded ferrous sulfate 325 mg (65 mg 325 mg PO BID iron anemia #60 tabs 10/27/23 iron) tablet amoxicillin 875 mg-potassium 1 tab PO BID 10 days #20 tabs 07/09/24 clavulanate 125 mg tablet prednisone 20 mg tablet 60 mg (3 x 20 mg) PO ONCE 5 days 07/09/24 #15 tabs Allergies Allergy/AdvReac Type Severity Reaction Status Date / Time shiromel mushroom AdvReac Unknown FACIAL Verified 07/09/24 16:12 NUMBNESS PFSH ED PFSH: Medical History (Updated 07/09/24 @ 19:04 by JOSI Nagel) Anxiety and depression Primary snoring Sleep study 01/09/2024 normal sleep study, no apnea or hypoxemia Iron deficiency anemia Intermittent palpitations Hepatitis C Major depressive disorder, single episode, moderate Bilateral anterior knee pain Intervertebral disc disorders with radiculopathy, lumbosacral region Thoracic degenerative disc disease Morbid obesity GERD (gastroesophageal reflux disease) Surgical History S/[place] tubal [place] 04/08/06- [place] [facility] [place] varicose vein ligation and stripping 02/12/19- DR CONTI S/P right breast biopsy 2008 Family History Mother Stroke Diabetes Heart disease Breast cancer, Onset Age: 35 Ovarian cancer Father Hypertension Hyperlipidemia Grandmother Heart disease Maternal Family/Other Heart disease Aunt Social History Smoking and tobacco/nicotine status: former use of tobacco/nicotine Course Vital Signs: Vital signs: Vital Signs Temperature 98.1 F 07/09/24 16:09 Pulse Rate 89 07/09/24 19:20 Respiratory Rate 18 07/09/24 17:13 Blood Pressure 115/87 07/09/24 19:20 Pulse Oximetry 99 07/09/24 19:20 Oxygen Delivery Me thod Room Air 07/09/24 18:30 MDM - SOB/Dyspnea Medical Decision Making Patient presented for evaluation of 3 days of shortness of breath accompanying with other upper respiratory symptoms, was adamant that she is having a pneumonia as she had similar symptoms in September and was diagnosed with pneumonia. On arrival her vitals were normal, noted to be afebrile and breathing comfortably on room air. Her lungs were normal to auscultation, no wheezing or focal findings. Her lab work was normal. Currently at this time there is a COVID PCR pending, however patient is again adamant that she does not have COVID and has pneumonia. Vitals have remained stable. X-ray did not demonstrate any findings of pneumonia. At the urging of patient, we will start her on antibiotics and steroids to treat an upper respiratory infection and reactive airway disease, and she is instructed to follow-up with primary care provider later this week. Return precautions were given. COVID pending at this time she will be notified with any abnormal results. Chart reviewed Lab Data 07/09/24 17:03 07/09/24 17:03 Labs/Radiology: Radiology Impressions Chest X-Ray 07/09/24 16:55 IMPRESSION: No acute findings. Laboratory Results WBC 7.09 10^3/uL (3.29-11.43) 07/09/24 17:03 RBC 4.65 10^6/uL (3.85-5.65) 07/09/24 17:03 Hgb 13.80 g/dL (11.27-16.99) 07/09/24 17:03 Hct 41.3 % (36-47) 07/09/24 17:03 MCV 88.8 fl (85-98) 07/09/24 17:03 MCH 29.7 pg (27-33) 07/09/24 17:03 MCHC 33.4 g/dL (30-55) 07/09/24 17:03 RDW 13.2 % (12.1-15.1) 07/09/24 17:03 Plt Count 304 10^3/cmm (157-399) 07/09/24 17:03 MPV 8.8 fL (7.4-10.4) 07/09/24 17:03 Neut % (Auto) 57.4 % 07/09/24 17:03 Lymph % (Auto) 34.4 % 07/09/24 17:03 [place] % (Auto) 5.8 % 07/09/24 17:03 Eos % (Auto) 1.7 % 07/09/24 17:03 Baso % (Auto) 0.4 % 07/09/24 17:03 Neut # (Auto) 4.07 10^3/uL (1.8-7.7) 07/09/24 17:03 Lymph # (Auto) 2.4 10^3/uL (0.8-4.8) 07/09/24 17:03 [place] # (Auto) 0.4 10^3/uL (0.2-0.9) 07/09/24 17:03 Eos # (Auto) 0.1 10^3/uL (0.0-0.8) 07/09/24 17:03 Baso # (Auto) 0.0 10^3/uL (0.0-0.1) 07/09/24 17:03 Nucleated RBC % (auto) 0 % 07/09/24 17:03 Nucleated RBCs # 0.0 /100WBC 07/09/24 17:03 Sodium 141 mmol/L (136-145) 07/09/24 17:03 Potassium 4.2 mmol/L (3.5-5.1) 07/09/24 17:03 Chloride 102 mmol/L (98-107) 07/09/24 17:03 Carbon Dioxide 28 mmol/L (22-29) 07/09/24 17:03 Anion Gap 15.2 (5-19) 07/09/24 17:03 BUN 8 mg/dL (6-20) 07/09/24 17:03 Creatinine 0.8 mg/dL (0.5-0.9) 07/09/24 17:03 GFR Calculation 77.2 mL/min (90-130) L 07/09/24 17:03 Glucose 97 mg/dL (65-115) 07/09/24 17:03 Calculated Osmolality 290 mOsm/kg (285-295) 07/09/24 17:03 Calcium 9.2 mg/dL (8.5-10.5) 07/09/24 17:03 Total Bilirubin 0.3 mg/dL (0.15-1.2) 07/09/24 17:03 AST 15 U/L (0-32) 07/09/24 17:03 ALT 18 U/L (0-33) 07/09/24 17:03 Alkaline Phosphatase 83 U/L (35-105) 07/09/24 17:03 Total Protein 7.4 g/dL (6.6-8.7) 07/09/24 17:03 Albumin 4.1 g/dL (3.5-5.2) 07/09/24 17:03 Globulin 3.3 g/dL (1.3-4.6) 07/09/24 17:03 Coronavirus 229E (PCR) Not detected (NOT DETECT) 07/09/24 17:17 Human Metapneumovir PCR Not detected (NOT DETECT) 07/09/24 20:06 Entero/Rhino (PCR) Detected (NOT DETECT) A 07/09/24 20:06 SARS-CoV-2 (PCR) Not detected (NOT DETECT) 07/09/24 17:17 Discharge Plan Discharge Patient Disposition: Home Clinical Impression: Mild intermittent reactive airway disease Upper respiratory infection Qualifiers: URI type: unspecified URI Qualified Code(s): J06.9 - Acute upper respiratory infection, unspecified Condition: Stable Prescriptions: New prednisone 20 mg tablet 60 mg PO ONCE 5 Days Qty: 15 0RF amoxicillin-pot clavulanate 875-125 mg tablet 1 tab PO BID 10 Days Qty: 20 0RF No Action ferrous sulfate 325 mg (65 mg iron) tablet 325 mg PO BID Qty: 60 11RF Discharge Orders: Discharge ED (Routine); Ordered 07/09/24 Ordered By: Benjamin Jaramillo Referrals: Johnny Hedrcik MD [Primary Care Provider] - Discharge Diet: Usual diet Discharge Activity: Increase activity as tolerated Patient Instructions: Upper Respiratory Infection (ED) Activity Restrictions/Additional Instructions: Augmentin and steroids. Plenty of fluids. Follow-up with your primary care provider later this week for reevaluation. Return with any new or worsening. Coding Level of Care Code ED [employer] for Ashley Odom
[2024-07-09 17:42] LABS: Alanine Aminotransferase 18 U/L (0-33); Albumin Level 4.1 g/dL (3.5-5.2); Alkaline Phosphatase 83 U/L (35-105); Anion Gap 15.2 (5-19); Aspartate Amino Transferase 15 U/L (0-32); Blood Urea Nitrogen 8 mg/dL (6-20); Calcium 9.2 mg/dL (8.5-10.5); Carbon Dioxide 28 mmol/L (22-29); Chloride 102 mmol/L (98-107); Creatinine Clr Calc Pharmacy 119.8256; Globulin 3.3 g/dL (1.3-4.6); Glomerular Filtration Rate 77.2 mL/min (90-130); Glucose 97 mg/dL (65-115); Osmolality Calculated 290 mOsm/kg (285-295); Potassium 4.2 mmol/L (3.5-5.1); Sodium 141 mmol/L (136-145); Total Bilirubin 0.3 mg/dL (0.15-1.2); Total Protein 7.4 g/dL (6.6-8.7)
[2024-07-09 18:00] VITALS: BP 144/114; PULSE 95; O2SAT 96
[2024-07-09 18:30] VITALS: BP 133/77; PULSE 91; O2SAT 95
[2024-07-09] MEDS: dexamethasone 10 mg/mL INJ IM (19:16)
[2024-07-09] MEDS: amoxicillin-clav 875-125 mg Tablet 1 TAB PO (19:16)
[2024-07-09 19:20] VITALS: BP 115/87; PULSE 89; O2SAT 99
[2024-07-09 19:55] LABS: Adenovirus Not Detected (NOT DETECT); Chlamydia Pneumoniae Not Detected (NOT DETECT); Coronavirus 229E,HKU1,NL63,OC4 Not Detected (NOT DETECT); Human Metapneumovirus Not Detected (NOT DETECT); Human Rhinovirus/Enterovirus Detected (NOT DETECT); Influenza A Not Detected (NOT DETECT); Influenza A H1 Not Detected (NOT DETECT); Influenza A H1-2009 Not Detected (NOT DETECT); Influenza A H3 Not Detected (NOT DETECT); Influenza B Not Detected (NOT DETECT); Mycoplasma Pneumoniae Not Detected (NOT DETECT); Parainfluenza Virus Type 1 Not Detected (NOT DETECT); Parainfluenza Virus Type 2 Not Detected (NOT DETECT); Parainfluenza Virus Type 3 Not Detected (NOT DETECT); Parainfluenza Virus Type 4 Not Detected (NOT DETECT); Respiratory Syncytial Virus A Not Detected (NOT DETECT); Respiratory Syncytial Virus B Not Detected (NOT DETECT); SARS-COV-2 Not Detected (NOT DETECT)
[2024-07-09 20:07] LABS: Human Metapneumovirus Not Detected (NOT DETECT); Human Rhinovirus/Enterovirus Detected (NOT DETECT); Results from GE
== END 2024-07-09 19:21 | disposition home or self-care (01) ==
PROVIDERS: Physician Assistant; Emergency Provider Physician Assistant; PCP Family Medicine Adult Medicine
DX: J06.9 Acute upper respiratory infection, unspecified (principal); J45.20 Mild intermittent asthma, uncomplicated; Z87.891 Personal history of nicotine dependence; Z86.19 Personal history of other infectious and parasitic diseases; Z11.52 Encounter for screening for COVID-19
CPT/HCPCS: 36415; 71045; 80053; 85025; 87635; 87801; 93005; 96372; 99285; J1100